=== PATIENT | female | born 1995 | race Two or more races ===

== ENCOUNTER 2016-10-19 16:17 | Emergency (ER) | payer MEDICAID ==
[2016-10-19] MEDS ORDERED: Dexamethasone Sodium Phos 4 mg/mL Vial IM STA (18:35)
[2016-10-19] MEDS ORDERED: Dexamethasone Sodium Phos 10 mg/mL PF Vial ONE (18:40)
--- NOTE | 2016-10-19 18:45 | ED Physician Chart ---
Chief Complaint/HPI - Patient Information Date Seen:: 10/19/16 Time Seen:: 18:30 Chief Complaint:: COUGH AND SORE THROAT History of Present Illness:: This 21-year-old female presents with a four-day history of cough and increasing soreness in her throat. Has pain swallowing liquids at this point in time. As a 7/10 severity and describes it as a dry sensation in her throat pain is made worse by swallowing. She also has a cough which is productive of yellow mucus. She denies any hemoptysis. She denies any fever chills or diaphoresis. Has nausea with intermittent vomiting. Patient has no history of diarrhea. Patient is a nonsmoker. Has a past medical history of asthma she feels that her asthmatic symptoms are making the throat pain worse. Patient with no prior history of similar sore throat. Allergies:: Allergies Allergy/AdvReac Type Severity Reaction Status Date / Time No Known Allergies Allergy Verified 05/31/16 09:50 Vitals:: Vital Signs - 8 hr 10/19/16 10/19/16 16:28 18:40 Temp 97.9 F 97.1 F HR 88 85 RR 18 17 BP 142/94 116/71 O2 Sat % 99 100 Review of Systems - Review of Systems General/Constitutional: No fever, No chills, No diaphoresis, No edema, Loss of appetite Skin: No skin lesions, No rash, No bruising Head: No headache, No light-headedness Eyes: No loss of vision, No diplopia ENT: Nasal drainage, Sore throat, No tinnitus Neck: No neck pain, No swelling, No stiffness, No mass noted Cardio Vascular: No chest pain, No palpitations, No edema Pulmonary: No SOB, Cough, Sputum (Sputum is yellow in color. 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: Vaginal discharge, No abnormal vaginal bleed Musculoskeletal: No bone or joint pain, No back pain Endocrine: No polyuria, No polydipsia Psychiatric: No prior psych history, No anxiety, No suicidal ideation Hematopoietic: No bruising, No lymphadenopathy Allergic/Immuno: No angioedema Neurological: No syncope, No focal symptoms, No weakness, No paresthesia, No headache, No seizure, No dizziness, No confusion, No vertigo Past Medical History - Past Medical History Past Medical History: Asthma/COPD, Other ( Patient has no prior history of DVT or pulmonary embolism.) Social History: Non Smoker, No Alcohol, No Drug Use, Employed ( 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 No respiratory distress. Head: Atraumatic Eyes: Lids, conjuctiva normal, PERRL, EOMI Skin: No rash, No skin lesions, No ecchymosis, Well hydrated ENMT: External ears, nose nl, Nasal exam nl Other ENMT comments:: Patient has marked inflammation with erythema of the posterior pharynx and enlargement of both tonsils. There are no peritonsillar masses or thickening of the soft palate. The patient has no tenderness along the margins of either the right or left sternocleidomastoid. Neck: Nontender, Full ROM w/o pain, No nuchal rigidity, No stridor Respiratory: Nl effort/Exclusion, Clear to Auscultation, No Wheeze/Rhonchi/Rales Other Respiratory comments:: Good air movement and no wheezing appreciated. Cardio Vascular: RRR, No murmur, gallop, rubs, NL S1 S2 Other Cardio Vascular comments:: Good pulses in all four extremities. GI: No tenderness/rebounding/guarding, No organomegaly, No hernia, Nondistended , No mass/bruits, No McBurney tenderness Other GI comments:: Rectal examination deferred at my discretion. : No CVA tenderness Extremities: No tenderness or effusion, Full ROM, normal strength in all extremities, No edema Other Extremities comments:: NO calf tenderness and negative Galvan's sign. Neuro/Psych: Alert/oriented, Normal sensory exam ( Sensory normal to light touch.), Normal motor strength, Judgement/insight normal, Mood normal, Normal gait, No focal deficits Misc: Normal back Other Misc comments:: No spinal or Paraspinous muscle tenderness. Labs/Radiology/EKG Results - Lab Results Results: no laboratory or radiographic studies deem necessary. Assessment - Assessment General Assessment: CASE SUMMARY: this 21-year-old female presents with a four-day history of cough productive of yellow sputum and increasing sore throat. The patient denies any associated fever, chills or rash. On physical examination there is marked inflammation of the posterior pharynx and enlargement of the tonsils. There is no evidence for a Nash tonsillar abscess or retro pharyngeal abscess. Although the patient has asthma she has no wheezing and good air movement on examination of the lungs. The patient is low risk for pulmonary embolism as she has a Well's score of zero. The patient received an injction of dexamethasone 10 mg as treatment for throat pain. She was given a prescription for azithromycin in case the inflammation is due to strip. Indications return to the emergency department were discussed in the patient has a follow-up appointment with her primary care physician scheduled for October 29. MDM DDX FOR COUGH AND SEVERE SORE THROAT: NOT Diphtheria based on the physical examination. NOT Lemierre's syndrome based on physical exam. NOT veronica-Tonsillar abscess based on physical exam. ED Septic Shock - . Is Septic Shock (SBP<90, OR Lactate>4 mmol\L) present?: No - <6hrs of presentation: Vital Signs: Vital Signs - 8 hr 10/19/16 10/19/16 16:28 18:40 Temp 97.9 F 97.1 F HR 88 85 RR 18 17 BP 142/94 116/71 O2 Sat % 99 100 Reassessment (Disposition) - Reassessment Reassessment Condition:: Unchanged - Diagnosis Diagnosis:: ACUTE PHARYNGITIS, COUGH, HISTORY OF ASTHMA Follow-up with your primary care physician on October 29 as already scheduled. The patient's primary physician is Dr. Mcelroy Return to the emergency department if her symptoms significantly worsen prior to your doctor's appointment. - Aftercare/Follow up Instructions Aftercare/Follow-Up Instructions:: Counseled pt regarding lab results/diagnosis & need follow up, Counseled pt & family regarding lab results/diagnosis & need follow up ED Discharge Plan - Patient Disposition Admit/Discharge/Transfer: PT DISCHARGED HOME Condition at Disposition: Improved Instructions: Viral and Bacterial Pharyngitis Accepting Physician: Elia Villa [Active] -
== END 2016-10-19 19:05 | disposition home or self-care (01) ==
LOC: ER 16:17
DX: J02.9 Acute pharyngitis, unspecified (principal); R05 Cough; J45.909 Unspecified asthma, uncomplicated
CPT/HCPCS: Z7502